=== PATIENT | female | born 1955 | race Two or more races ===

== ENCOUNTER 2024-08-25 11:30 | Inpatient (IN) | payer OTHER ==
[~2024-08-25] VITALS: Ht 162.6 cm; Wt 85.5 kg
[~2024-08-25 11:30] MED LIST: APPLTAB PO; ASPI81CH59 PO; ATOR40TA52 PO; CARV12.544 PO; CYCL-837 PO; DOCU-94 PO; DULO60CA41 PO; HYDR-4072 PO; HYDR12.59 PO; LEVO-849 PO; LOSA-535 PO; PANT40TA2 PO
[2024-08-25] MEDS: KETOROLAC TROMETH 30 MG/ML 1ML VIAL ONE (11:34)
[2024-08-25 12:38] LABS: INR 0.99 (0.9-1.15); Partial Thromboplastin Time 30.2 SEC (24.5-34.5); Prothrombin Time 10.5 sec (9.3-11.8)
[2024-08-25] MEDS ORDERED: LIDOCAINE 2% (LOCAL ANESTH.) PF 5ml SDV ONE (12:58)
[2024-08-25] MEDS ORDERED: ONDANSETRON HCL 4 MG/2 ML VIAL ONE (12:58)
[2024-08-25] MEDS ORDERED: METOCLOPRAMIDE HCL 5MG/ml INJ 2ml VIAL ONE (12:58)
[2024-08-25] MEDS ORDERED: fentaNYL CITRATE 100 MCG/2 ML VL ONE (12:58)
[2024-08-25] MEDS ORDERED: MIDAZOLAM HCL 2MG/2ML 2ml VIAL (1mg/ml) ONE (12:58)
[2024-08-25] MEDS ORDERED: PROPOFOL 10 MG/ML 20 ML IV ONE (12:59)
[2024-08-25] MEDS: CEFEPIME 1GM/ 50ML 50 ML IV ONE (13:00)
[2024-08-25] MEDS: CLINDAMYCIN 600MG IV 50 ML IV ONE (13:05)
[2024-08-25] MEDS ORDERED: ROCURONIUM 10MG/ML 10ML VIAL IV ONE (13:06)
[2024-08-25] MEDS: TRANEXAMIC ACID 20 ML ONE (13:15)
[2024-08-25] MEDS ORDERED: ePHEDrine SULFATE 50 MG/ML AMP ONE (13:18)
[2024-08-25] MEDS ORDERED: HYDROmorphone HCL 2 MG/ML VL/or syr ONE (13:36)
[2024-08-25] MEDS: VANCOMYCIN HCL 1000 MG VL ONE (13:43)
[2024-08-25] MEDS ORDERED: ALBUTEROL SULFATE 90 MCG MDI IN ONE (13:59)
[2024-08-25] MEDS ORDERED: SUGAMMADEX 200mg/2ml Vial (100MG/ML) IV ONE (14:01)
[2024-08-25] MEDS ORDERED: DOCUSATE SOD 100 MG CAP PO SCH (14:30)
--- NOTE | 2024-08-25 14:35 | DVHOP2 ---
Operative Report - 2 Report Details Date: 08/25/24 Preop Diagnosis: Right knee degenerative arthritis Postop Diagnosis: Right knee degenerative arthritis Surgeon: Yolie Gleason MD Burn Out Scarfing Operator: Yazmin QUIJANO Anesthesiologist: Lexa White CRNA Anesthesia: General Drains: Edwar closed wound suction Implant: Franky servin knee size seven femur PS 10 poly six tibia base plate Consent: The patient was informed of the risks and benefits of the procedure. These include but are not limited to complications of anesthesia, postoperative infection, incomplete relief of symptoms, recurrence of symptoms, damage to blood vessels, nerves and tendons, deep venous thrombosis, pulmonary embolism and possible need for repeat surgery in the future. Complications: None Estimated Blood Loss: 50 cc Fluids: See anesthesia record Findings: Valgus deformity, osteophytes, denuded cartilage with eburnated bone Indications for Surgery: Right knee degenerative arthritis with severe pain and functional impairment despite nonoperative management Name of Procedure Performed Right total knee arthroplasty Procedure Details Procedure Details: The patient was brought to the operating room and placed on the table in the supine position after being given spinal anesthetic with adequate analgesia obtained. Surgical timeout was performed verifying patient, laterality and procedure Preop patient received IV cefepime IV Ancef and IV tranexamic acid. Tourniquet was applied to the lower extremity. Extremity was elevated, exsanguinated Esmarch, and tourniquet inflated. Lower extremity was prepped and draped in sterile fashion. Midline incision was made followed by medial arthrotomy. I exposed the anterior medial and lateral tibial plateau and the anterior distal femur. Bovie and aqua mantis were used for hemostasis. I excised the anterior meniscal tissue with Bovie. I excised a portion of the fat pad with Bovie. The patella was everted and the knee flexed. I drilled the distal femur and suctioned the hole to reduce the risk of fat emboli. I inserted intramedullary guide with 5 degree valgus setting. I pinned the distal femoral cutting block anteriorly. Intramedullary vincent was removed. Distal femoral cut was made and the block removed. I brought my attention to the tibia setting up the external cutting jig for the tibia paying attention to slope, rotation and varus valgus alignment. I set the depth and pinned the block. I used the external alignment vincent to aid in checking alignment. Bone cut was made and bone removed releasing soft tissue attachments with Bovie. Cutting block removed. I then checked the extension gap and deemed adequate and removed the femur and tibia pins. I flexed the knee and applied the femoral sizing guide to the femur. I checked the size and external rotation setting at 90 degrees to Whitesides line and checking the epicondylar axis. I drilled the holes then removed the sizing guide and pin. I then tapped on the 4 in 1 cutting block and checked with the dylan wing anteriorly to make sure that I would not notch then pinned the block. Cuts were made and the block and pins were removed. Bone was removed with curved osteotome. I used a rongeur to remove any remaining osteophytes at the femur and tibia. I then used a lamina locomotive supervisor to open up the back alternating between the medial and lateral side. Any remaining meniscal tissue was excised with scalpel. I used curved osteotome, curette and rongeur to remove any posterior osteophytes. I prophylactically coagulated with aqua mantis. I then tapped on the template for the box cut and pinned it. Box cut was made and bone removed. Template and pin removed. I then tapped on the femoral trial. I then brought my attention back to the tibia sizing it. I used the external alignment vincent to make sure that rotation and alignment were good. I made a Bovie kiarra at the tibial tray kiarra identifying rotation for later use. I tried various tibial polytrials. The patella tracked nicely without thumb pressure. I removed the trials. I pinned the tray and used the reamer and keel punch. The implants were brought into the field while bone preparation was started. I used both normal saline irrigation and the CarboJet to prepare the bone. Once cement was ready I applied cement to the tibial implant and tibial bone tapped it on and removed excess cement in usual fashion. In similar fashion I tapped on the femoral implant. I inserted the trial polyethylene and brought the knee into 30 degrees flexion. I irrigated with bactisure irrigant. Once cement cured, I checked stability and range of motion as well as patella tracking. tourniquet was released and hemostasis maintained with aqua mantis. I inserted the polyethylene and again checked stability. I used a 2 grams of vancomycin half of which was placed deep and half superficial. I repaired the extensor mechanism with the knee in flexion with #1 Ethibond interrupted [id number]. Deep subcutaneous tissue was closed with 0 Vicryl. Superficial subcutaneous tissue was closed with 2-0 vicryl interrupted. Skin was closed with chayito. I then applied the [edwar closed wound suction]. Patient tolerated the procedure well and was brought to recovery room in stable condition. Condition Stable Disposition Still a Patient YOLIE GLEASON MD Aug 25, 2024 14:35
[2024-08-25] MEDS: D5W/LACTATED RINGERS 1,000 ML IV SCH (14:45)
[2024-08-25] MEDS ORDERED: ACETAMINOPHEN 325 MG TAB PO PRN (14:45)
[2024-08-25 14:54] VITALS: PULSE 63; RESP 11; O2SAT 100
[2024-08-25] MEDS: METOCLOPRAMIDE HCL 5MG/ml INJ 2ml VIAL IV ONE (15:15)
[2024-08-25] MEDS: KETOROLAC TROMETH 30 MG/ML 1ML VIAL IV ONE (15:15)
[2024-08-25] MEDS: ONDANSETRON HCL 4 MG/2 ML VIAL IV ONE (15:15)
[2024-08-25] MEDS: hydrALAZINE HCL 20 MG/ML VL IV PRN (15:27)
[2024-08-25] MEDS: HYDROmorphone HCL 2 MG/ML VL/or syr IV PRN (15:51)
--- NOTE | 2024-08-25 17:15 | DVH ---
Indication: postop Technique: 3 views right knee Comparison: None FINDINGS/IMPRESSION: Total right knee arthroplasty in anatomic alignment. Expected postoperative changes including surrou nding soft tissue emphysema, edema. Moderate suprapatellar effusion. Old right MCL injury.
[2024-08-25 17:49] VITALS: BP 138/59; PULSE 94; RESP 18; TEMP 98.3; O2SAT 97
[2024-08-25 17:56] VITALS: PULSE 82; RESP 16; O2SAT 97
[2024-08-25] MEDS: KETOROLAC TROMETH 30 MG/ML 1ML VIAL IV SCH (18:23)
[2024-08-25] MEDS: ACETAMINOPHEN 325 MG TAB PO SCH (18:23)
[2024-08-25 20:00] VITALS: PULSE 89; RESP 16
[2024-08-25 21:00] VITALS: BP 148/78; PULSE 99; RESP 18; TEMP 97.9; O2SAT 91
[2024-08-25] MEDS: oxyCODONE HCL 5MG TAB PO PRN (21:19)
[2024-08-25] MEDS: CLINDAMYCIN 600MG IV 50 ML IV SCH (22:00)
[2024-08-25] MEDS ORDERED: PATIENTS OWN MEDICATION (Cyclobenzaprine Hcl 10 MG) PO SCH (22:00)
[2024-08-25] MEDS: CYCLOBENZAPRINE HCL 10 MG TAB PO SCH (22:00)
[2024-08-25] MEDS: PREGABALIN 25 MG CAP PO SCH (22:00)
[2024-08-25] MEDS: CARVEDILOL 12.5 MG TAB PO SCH (22:00)
[2024-08-26 01:00] VITALS: BP 168/90; PULSE 100; RESP 18; TEMP 98.3; O2SAT 92
[2024-08-26 05:00] VITALS: BP 172/90; PULSE 95; RESP 18; TEMP 98.3; O2SAT 92
[2024-08-26 06:22] LABS: Chloride 105 mmol/L (98-107); Sodium 139 mmol/L (136-145)
[2024-08-26 06:23] LABS: Anion Gap 8 (5-15); Carbon Dioxide 26 mmol/L (20-31)
[2024-08-26] MEDS: LEVOTHYROXINE SODIUM 100 MCG TAB PO SCH (06:23)
[2024-08-26 06:26] LABS: Calcium 10.9 mg/dL (8.7-10.4)
[2024-08-26 06:28] LABS: BUN/Creatinine Ratio 16.5 (10.0-20.0); Basophils # (auto) 0 10 ^3/uL (0-0.2); Basophils % (auto) 0.3 % (0.0-2.0); Blood Urea Nitrogen 15 mg/dL (9-23); Eosinophils # (auto) 0 10 ^3/uL (0-0.8); Hemoglobin 11.1 g/dL (12.2-16.2); Lymphocytes # (auto) 0.9 10 ^3/uL (0.4-5.4); Lymphocytes % (auto) 7.5 % (10.0-50.0); Mean Corpuscular Hemoglobin 29.2 pg (28.0-32.0); Mean Corpuscular Hgb Conc. 32.7 g/dL (32.0-36.0); Mean Corpuscular Volume 89.2 fL (80.0-100.0); Monocytes % (auto) 8.1 % (0.0-12.0); Neutrophils # (auto) 9.9 10 ^3/uL (1.6-8.6); Neutrophils % (auto) 84.1 % (37.0-80.0); Platelet Count (auto) 269 10^3/uL (140-450); Red Blood Cells 3.81 10^6/uL (4.0-5.20); Red Cell Distribution Width 15.2 % (11.8-14.3); White Blood Cell 11.8 10^3/uL (4.4-10.8)
[2024-08-26 06:29] LABS: Glucose 129 mg/dL (74-106)
[2024-08-26 08:00] VITALS: PULSE 72; RESP 18; O2SAT 93
[2024-08-26] MEDS: ASPirin 81 mg TAB PO SCH (08:46)
[2024-08-26] MEDS: LOSARTAN POTASSIUM 50 MG TAB PO SCH (08:49)
[2024-08-26] MEDS: DULoxetine HCL 30 MG CAP PO SCH (08:49)
[2024-08-26] MEDS: PANTOPRAZOLE 40 MG TAB PO SCH (08:50)
[2024-08-26 09:00] VITALS: BP 191/83; PULSE 85; RESP 20; TEMP 99; O2SAT 92
[2024-08-26] MEDS ORDERED: PATIENTS OWN MEDICATION (Losartan Potassium 100 MG) PO SCH (10:00)
[2024-08-26] MEDS ORDERED: LEVOTHYROXINE SODIUM 100 MCG TAB PO SCH (10:00)
[2024-08-26] MEDS ORDERED: PATIENTS OWN MEDICATION (Duloxetine Hcl (Cymbalta) 60 MG) PO SCH (10:00)
[2024-08-26 13:00] VITALS: BP 184/96; PULSE 85; RESP 20; TEMP 98.2; O2SAT 94
--- NOTE | 2024-08-26 13:33 | DVHDS2 ---
Discharge Summary Date of Admission Aug 25, 2024 at 14:31 Date of Discharge: Aug 26, 2024 Labs/Diagnostic Data: Laboratory Results Test 08/26/24 05:33 08/25/24 12:00 White Blood Count 11.8 10^3/uL (4.4-10.8) Red Blood Count 3.81 10^6/uL (4.0-5.20) Hemoglobin 11.1 g/dL (12.2-16.2) Hematocrit 34.0 % (36.0-46.0) Mean Corpuscular Volume 89.2 fL (80.0-100.0) Mean Corpuscular Hemoglobin 29.2 pg (28.0-32.0) Mean Corpuscular Hemoglobin Concent 32.7 g/dL (32.0-36.0) Red Cell Distribution Width 15.2 % (11.8-14.3) Platelet Count 269 10^3/uL (140-450) Mean Platelet Volume 8.6 fL (6.9-10.8) Neutrophils (%) (Auto) 84.1 % (37.0-80.0) Lymphocytes (%) (Auto) 7.5 % (10.0-50.0) Monocytes (%) (Auto) 8.1 % (0.0-12.0) Eosinophils (%) (Auto) 0.0 % (0.0-7.0) Basophils (%) (Auto) 0.3 % (0.0-2.0) Neutrophils # (Auto) 9.9 10 ^3/uL (1.6-8.6) Lymphocytes # (Auto) 0.9 10 ^3/uL (0.4-5.4) Monocytes # (Auto) 1.0 10 ^3/uL (0-1.3) Eosinophils # (Auto) 0 10 ^3/uL (0-0.8) Basophils # (Auto) 0 10 ^3/uL (0-0.2) Nucleated Red Blood Cells 0.0 % Sodium Level 139 mmol/L (136-145) Potassium Level 4.0 mmol/L (3.5-5.1) Chloride Level 105 mmol/L (98-107) Carbon Dioxide Level 26 mmol/L (20-31) Anion Gap 8 (5-15) Blood Urea Nitrogen 15 mg/dL (9-23) Creatinine 0.91 mg/dL (0.550-1.02) Glomerular Filtration Rate Calc 69 mL/min (>90) BUN/Creatinine Ratio 16.5 (10.0-20.0) Serum Glucose 129 mg/dL (74-106) Calcium Level 10.9 mg/dL (8.7-10.4) Prothrombin Time 10.5 sec (9.3-11.8) Prothrombin Time INR 0.99 (0.9-1.15) Activated Partial Thromboplast Time 30.2 SEC (24.5-34.5) Other Laboratory Tests 08/26/24 05:33 Brief Hx & Hospital Course: Patient was brought to the hospital yesterday to undergo a right total knee arthroplasty. She tolerated the procedure well without complications and was kept overnight for postoperative observation. Patient has remained medically stable denying any overnight events and reports some postoperative knee pain that is being well managed with the help of pain medication. Patient reports that she was able to get up and walk with the help of physical therapy and her walker and was able to go down the todd and around the nurses station and back to her room with minimal pain. Patient denied any other complaints or concerns during my evaluation and is ready to go home. Condition at Discharge: Stable Final Diagnosis/Problems List Right knee degenerative arthritis Discharge Disposition: Home (Patient to be considered for home health as patient is going home for further assistance with the acute phase of her recovery) Discharge Instruct/Medications Diet: Regular Activity: See Comment Activity comment: Patient to remain weight-bearing as tolerated with the assistance of a walker Follow Up/Referral: I instructed the patient to follow up with our office in 10-14 days for her 1st postoperative evaluation Medications: Rx sent via our outpatient EMR system Discharge Statement: "Patient was advised to return to the ER or call 911 if any headaches, dizziness, shortness of breath, chest pain, abdominal pain, bleeding, fevers, or worsening of medical condition. Patient was counseled about treatment plan, medications, possible side effects, patientverbalized understanding. All questions were answered to the best of my ability. This discharge took greater then 30 minutes in planning, reviewing documentation, counseling the patient, and discussing with other team members." ASSESSMENT ASSESSMENT Assessment Right knee degenerative arthritis VIKKI PEACOCK Aug 26, 2024 13:33
--- NOTE | 2024-08-26 13:35 | DVHPN2 ---
Progress Note - Dictate Date Seen: Aug 26, 2024 Medical Necessity Reason Pt with a Central, PICC or Fol: No Subjective Patient was lying comfortably in bed during my evaluation and reports some postoperative knee pain that is being well managed with the help of pain medication. Patient reports that she was able to get up and walk with the help of physical therapy and her walker and was able to get down the todd around the nurses station and back to her bed with minimal pain. Patient is otherwise feeling well and is ready to go home. vital signs Vital Sign Date Time Temp Pulse Resp B/P (MAP) Pulse Ox O2 Delivery O2 Flow Rate FiO2 08/26/24 10:00 87 157/89 08/26/24 09:00 99.0 20 92 99.0 08/26/24 08:00 Room Air* 0 21 Total Intake and Output 08/25/24 08/25/24 08/26/24 15:00 23:00 07:00 Intake Total 220 ml 450 ml Balance 220 ml 450 ml medications Current Medications Medications Dose Ordered Sig/Brea Route Start Time Stop Time Status Last Admin Dose Admin Carvedilol 12.5 mg BID PO 08/25/24 22:00 08/26/24 08:48 12.5 MG Docusate Sodium 100 mg PRN PO 08/25/24 14:30 Pantoprazole Sodium 40 mg DAILY PO 08/26/24 10:00 08/26/24 08:50 40 MG Patient Own Medication 10 mg BID PO 08/25/24 22:00 UNV Patient Own Medication 60 mg DAILY PO 08/26/24 10:00 UNV Patient Own Medication 100 mg DAILY PO 08/26/24 10:00 UNV Levothyroxine Sodium 88 mcg QAM PO 08/26/24 07:00 08/26/24 06:23 88 MCG Losartan Potassium 100 mg DAILY PO 08/26/24 10:00 08/26/24 08:49 100 MG Duloxetine HCl 60 mg DAILY PO 08/26/24 10:00 08/26/24 08:49 60 MG Cyclobenzaprine HCl 10 mg BID PO 08/25/24 22:00 08/26/24 09:03 10 MG Dextrose/Lactated Ringer's 1,000 ml @ 100 mls/hr Q10H IV 08/25/24 14:45 08/26/24 04:10 100 MLS/HR Acetaminophen 650 mg Q4HP PRN PO 08/25/24 14:45 Acetaminophen 650 mg Q6HR PO 08/25/24 18:00 08/26/24 12:35 650 MG Ketorolac Tromethamine 15 mg Q6HR IV 08/25/24 18:00 08/30/24 17:59 08/26/24 12:35 15 MG Pregabalin 50 mg BID PO 08/25/24 22:00 08/26/24 13:28 50 MG Oxycodone HCl 5 mg Q4HP PRN PO 08/25/24 14:45 08/26/24 08:45 5 MG Oxycodone HCl 10 mg Q4HP PRN PO 08/25/24 14:45 Aspirin 81 mg BID PO 08/26/24 10:00 08/26/24 08:46 81 MG objective A&O x4 in no acute distress Knee range of motion grossly limited with pain on movement Yemi dressing clean, dry, intact, and maintaining suction No distal edema or calf tenderness to palpation Neurovascularly intact with cap refill less than 2 seconds laboratory and microbiology Laboratory Tests 08/26/24 05:33 Test 08/26/24 05:33 Range/Units Serum Glucose 129 H 74-106 mg/dL Assessment/Plan Patient to be discharged home and advised to remain weight-bearing as tolerated with the assistance of a walker and to follow up with our office in 10-14 days for her 1st postoperative evaluation. I also advised the patient to maintain her dressings clean, dry, intact, and maintaining suction and to call our office if she has any questions or concerns. Rx sent via our outpatient EMR system. She understood and agreed. Plan discussed with: Patient VIKKI PEACOCK Aug 26, 2024 13:35
[2024-08-26] MEDS: oxyCODONE HCL 5MG TAB PO PRN (14:30)
[2024-08-26 14:52] VITALS: BP 157/89; PULSE 87; TEMP 36.8
== END 2024-08-26 15:00 | disposition home or self-care (01) | DRG 470 ==
LOC: SUR 11:30 → OVERFLOW 14:31 → WEST WING 17:16
PROVIDERS: ADMIT Orthopaedic Surgery; ATTEND Orthopaedic Surgery
PROC: 0SRC0J9 Replacement of Right Knee Joint with Synthetic Substitute, Cemented, Open Approach (ICD-10-PCS; principal; 2024-08-25 12:58)
DX: M17.11 Unilateral primary osteoarthritis, right knee (principal); M21.061 Valgus deformity, not elsewhere classified, right knee; M25.761 Osteophyte, right knee; Z79.899 Other long term (current) drug therapy
CPT/HCPCS: 36415; 73562; 80048; 85025; 85610; 85730; 86850; 86900; 86901; 97163; G0378; J1885; J2003; J2250; J2405; J2704; J3490

== ENCOUNTER 2024-09-19 17:16 | Inpatient (IN) | payer OTHER ==
[~2024-09-19] VITALS: Ht 162.6 cm; Wt 86.0 kg
--- NOTE | 2024-09-19 17:43 | ED.PDOC ---
History of Present Illness HPI Comments 69-year-old female presents with a chief complaint of fever, edema, and pain x 3 days throughout the anterior aspect of the right knee. Patient recently had knee replacement surgery on 08/25/2024 on the right knee. Patient states that know she is experiencing green drainage from her surgical site. Patients knee is swollen and visibly so compared to left knee. Patient reports mild pain to the area. No other symptoms or modifying factors present at this time. Patient was hypertensive at arrival. Patient does utilize Coreg and stated she did not take her nightly dosing. Chief Complaint: Wound Check Time Seen by MD: 17:35 Reviewed Notes: Nurses Notes, Medications, Allergies Allergies: Coded Allergies: Penicillins (Unverified Allergy, Unknown, convulsions , 08/24/24) Home Meds Reported Medications Apple Cider Vinegar (Apple Cider Vinegar) 500 Mg Tab, 500 MG PO DAILY, TAB 08/24/24 Docusate Sodium (Colace) 100 Mg Cap, 100 MG PO PRN, CAP 08/24/24 Hydrocodone-Acetaminophen (Hydrocodone/Acetaminophen 10-325 mg) 1 Tab Tab, 1 TAB PO PRN, TAB 08/24/24 Aspirin (Aspirin Low Dose) 81 Mg Chw, 81 MG PO DAILY, TAB.CHEW 08/24/24 Cyclobenzaprine Hcl (Cyclobenzaprine Hcl) 5 Mg Tab, 10 MG PO BID, TAB 08/24/24 Duloxetine Hcl (Cymbalta) 60 Mg Cap, 60 MG PO DAILY, CAP 08/24/24 Losartan Potassium (Losartan Potassium) 100 Mg Tab, 100 MG PO DAILY, TAB 08/24/24 Atorvastatin Calcium (ATORVASTATIN CALCIUM) 40 Mg Tab, 40 MG PO DAILY, TAB 08/24/24 Pantoprazole Sodium Sesquihydr (Protonix) 40 Mg Tab, 40 MG PO DAILY, #30 TAB 08/24/24 Levothyroxine Sodium (SYNTHROID TABLET) 100 Mcg Tb, 88 MCG PO DAILY, TAB 08/24/24 Hydrochlorothiazide (Hydrochlorothiazide) 12.5 Mg Cap, 12.5 MG PO DAILY, CAP 08/24/24 Carvedilol (Carvedilol) 12.5 Mg Tab, 12.5 MG PO BID, TAB 08/24/24 Information Source: Patient Mode of Arrival: Ambulatory Severity: Moderate Timing: Days Duration: Since onset Prehospital treatment: None Past Medical History PAST MEDICAL HISTORY: HTN, Denies Surgical History: Denies all surgeries Surgical History (Other): Right total knee replacement surgery on August 25, 2024. LACE STRIPPER History: Denies all LACE STRIPPER Hx, No Pertinent LACE STRIPPER History Family History Family History: Reviewed,noncontributory to illness, No family hx of Cancer, No family hx of DM, No family hx of Heart evelina, No family hx of HTN, No family hx ofKidney evelina, No family hx of Liver evelina, No family hx of Lung evelina, No family hx of Stroke Social History Smoker: Non-Smoker Alcohol: Denies ETOH Use Drugs: Denies Drug Use Lives In: Home Constitutional: reports: fever; denies: chills, diaphoresis, fatigue, malaise, sweats, weakness, others EENTM: denies: blurred vision, double vision, ear bleeding, ear discharge, ear drainage, ear pain, ear ringing, eye pain, eye redness, hearing loss, mouth pain, mouth swelling, nasal discharge, nose bleeding, nose congestion, nose pain, photophobia, tearing, throat pain, throat swelling, voice changes, others Respiratory: denies: cough, hemoptysis, orthopnea, SOB at rest, shortness of breath, SOB with excertion, stridor, wheezing, others Cardiovascular: reports: edema; denies: chest pain, dizzy spells, diaphoresis, Dyspnea on exertion, irregular heart beat, left arm pain, lightheadedness, palpitations, PND, syncope, others Gastrointestinal: denies: abdomen distended, abdominal pain, blood streaked bowels, constipated, diarrhea, dysphagia, difficulty swallowing, hematemesis, melena, nausea, poor appetite, poor fluid intake, rectal bleeding, rectal pain, vomiting, others Genitourinary: denies: abnormal vagina bleeding, burning, dyspareunia, dysuria, flank pain, frequency, hematuria, incontinence, pain, , vagina discharge, urgency, others Neurological: denies: dizziness, fainting, headache, left sided numbness, left sided weakness, numbness, paresthesia, pre-existing deficit, right sided numbness, right sided weakness, seizure, speech problems, tingling, tremors, weakness, others Musculoskeletal: reports: others (Diffuse anterior right knee pain with swe lling and discharge); denies: back pain, gout, joint pain, joint swelling, muscle pain, muscle stiffness, neck pain Integumetry: denies: bruises, change in color, change in hair/nails, dryness, laceration, lesions, lumps, rash, wounds, others Allergic/Immunocompromised: denies: Difficulty Healing, Frequent Infections, Hives, Itching, others Hematologic/Lymphatic: denies: anemia, blood clots, easy bleeding, easy bruising, swollen glands, others Endocrine: denies: excessive hunger, excessive sweating, excessive thirst, excessive urination, flushing, intolerance to cold, intolerance to heat, unexplained weight gain, unexplained weight loss, others Psychiatric: denies: anxiety, bipolar disorder, depression, hopeless, panic disorder, schizophrenia, sleepless, suicidal, others All Other Systems: Reviewed and Negative Physical Exam General Appearance: Moderate Distress ([id number] distress due to right knee concerns.), Obese HEENT: Normal ENT Inspection, Pharynx Normal, TMs Normal Neck: Full Range of Motion, Non-Tender, Normal, Normal Inspection Respiratory: Chest Non-Tender, Lungs Clear, No Accessory Muscle Use, No Respiratory Distress, Normal Breath Sounds Cardiovascular: No Edema, No JVD, No Murmur, No Gallop, Normal Peripheral Pulses, Regular Rate/Rhythm Breast Exam: Deferred Gastrointestinal: No Organomegaly, Non Tender, No Pulsatile Mass, Normal Bowel Sounds, Soft Genitalia: Deferred Pelvic: Deferred Rectal: Deferred Extremities: Other (Patient displays an extensive anterior vertical scar due to her total right knee replacement. Patient has Steri-Strips in place. Patient reveals some erythema and edema. When patient compresses the area, some mild green discharge is noted. Significant reduced range of motion. Distal neurovascularly intact.) Musculoskeletal : Apperance: Normal Neurologic: Alert, No Motor Deficits, Normal Affect, Normal Mood, No Sensory Deficits Cerebellar Function: Normal Reflexes: Normal Skin: Dry, Normal Color, Warm Lymphatic: No Adenopathy Was a procedure done? Was a procedure done?: No Differential Dx Considerations may include: Sepsis, septic joint, postoperative complication, electrolyte abnormality X-Ray, Labs, Meds, VS Vital Signs Date Time Temp Pulse Resp B/P (MAP) Pulse Ox O2 Delivery O2 Flow Rate FiO2 09/19/24 21:24 206/89 09/19/24 20:49 97.9 75 18 161/103 (122) 96 97.9 09/19/24 20:49 75 18 96 Room Air 09/19/24 17:37 98.5 95 16 160/105 (123) 97 98.5 Lab Test 09/19/24 17:52 Range/Units White Blood Count 7.6 4.4-10.8 10^3/uL Red Blood Count 3.97 L 4.0-5.20 10^6/uL Hemoglobin 12.0 L 12.2-16.2 g/dL Hematocrit 35.9 L 36.0-46.0 % Mean Corpuscular Volume 90.5 80.0-100.0 fL Mean Corpuscular Hemoglobin 30.2 28.0-32.0 pg Mean Corpuscular Hemoglobin Concent 33.3 32.0-36.0 g/dL Red Cell Distribution Width 16.1 H 11.8-14.3 % Platelet Count 399 140-450 10^3/uL Mean Platelet Volume 8.1 6.9-10.8 fL Neutrophils (%) (Auto) 61.8 37.0-80.0 % Lymphocytes (%) (Auto) 26.8 10.0-50.0 % Monocytes (%) (Auto) 8.4 0.0-12.0 % Eosinophils (%) (Auto) 2.5 0.0-7.0 % Basophils (%) (Auto) 0.5 0.0-2.0 % Neutrophils # (Auto) 4.7 1.6-8.6 10 ^3/uL Lymphocytes # (Auto) 2.0 0.4-5.4 10 ^3/uL Monocytes # (Auto) 0.6 0-1.3 10 ^3/uL Eosinophils # (Auto) 0.2 0-0.8 10 ^3/uL Basophils # (Auto) 0 0-0.2 10 ^3/uL Nucleated Red Blood Cells 0.0 % Sodium Level 140 136-145 mmol/L Potassium Level 3.2 L 3.5-5.1 mmol/L Chloride Level 102 98-107 mmol/L Carbon Dioxide Level 29 20-31 mmol/L Anion Gap 9 5-15 Blood Urea Nitrogen 13 9-23 mg/dL Creatinine 0.88 0.550-1.02 mg/dL Glomerular Filtration Rate Calc 72 >90 mL/min BUN/Creatinine Ratio 14.8 10.0-20.0 Serum Glucose 94 74-106 mg/dL Calcium Level 11.7 H 8.7-10.4 mg/dL Total Bilirubin 0.2 0.2-1.0 mg/dL Aspartate Amino Transferase (AST) 43 H 13-40 U/L Alanine Aminotransferase (ALT) 33 7-40 U/L Alkaline Phosphatase 164 H 46-116 U/L Total Protein 7.3 5.7-8.2 g/dL Albumin 4.3 3.2-4.8 g/dL Current Medications Medications (Trade) Dose Ordered Sig/Brea Route Start Time Stop Time Status Last Admin Oxycodone/ Acetaminophen (Percocet 5/ 325MG Tablet) 1 tab ONCE ONCE PO 09/19/24 17:45 09/19/24 17:46 DC 09/19/24 17:58 Carvedilol (Coreg Tablet) 12.5 mg ONCE ONCE PO 09/19/24 21:00 09/19/24 21:01 DC 09/19/24 21:24 X-Ray, Labs, Meds, VS Comment All studies performed the ED were evaluated by me personally. While serum laboratories were unremarkable for any definitive sepsis concerns, CT of the right lower extremity with contrast revealed a small to moderate joint effusion with minimal soft tissue edema as well as possible peripheral enhancement along the effusion. Contrast-enhanced MRI or nuclear medicine WBC scan for better evaluation of possible infectious etiology is recommended. Patient will be adm itted for that recommended study. Knee replacement was performed by Dr. Cheung. Time of 1ST Reevaluation: 21:53 Reevaluation 1ST: Unchanged Consultation: PCP, Other (Orthopedist) Patient Education/Counseling: Diagnosis, Treatment, Need For Follow Up Family Education/Counseling: Diagnosis, Treatment, No Family Present SEPSIS Sepsis Screen Recent Procedure: No On Antibiotic Therapy: No Respiratory Rate >20: No Heart Rate >90: No Temp<36 C (96.8 F) or >38.3 C: No SBP <90 or MAP <65 mmHG: No New Acute Mental Status Change: No Is the patient on CPAP, BIPAP,: No Physician Orders Rt Lower Extremity W Con (09/19/24 17:39) Saline Lock (09/19/24 17:47) Vital Signs Date Time Temp Pulse Resp B/P (MAP) Pulse Ox O2 Delivery O2 Flow Rate FiO2 09/19/24 21:24 206/89 09/19/24 20:49 97.9 75 18 161/103 (122) 96 97.9 09/19/24 20:49 75 18 96 Room Air 09/19/24 17:37 98.5 95 16 160/105 (123) 97 98.5 Laboratory Tests Test 09/19/24 17:52 White Blood Count 7.6 10^3/uL (4.4-10.8) Medications Medications Dose Ordered Sig/Brea Route Start Time Stop Time Status Last Admin Dose Admin Carvedilol 12.5 mg ONCE ONCE PO 09/19/24 21:00 09/19/24 21:01 DC 09/19/24 21:24 Oxycodone/ Acetaminophen 1 tab ONCE ONCE PO 09/19/24 17:45 09/19/24 17:46 DC 09/19/24 17:58 Departure 1 Departure Time of Disposition: 21:53 Impression: Primary Impression: Postoperative complication Disposition: ADMITTED INPATIENT Condition: Stable Discharged With: Self, Spouse Critical Care Note Critical Care Time?: No Stability Stability form required: No Heart Score Heart Score: Heart Score Response (Comments) Value History N/A 0 EKG N/A 0 Age N/A 0 Risk Factors N/A 0 Troponin N/A 0 Total 0 I personally scribed for KENDRA ARROYO PAC ([email or web address]) on 09/19/24 at 17:43. Electronically submitted by Juan Carlos Staples ([email or web address]). KENDRA ARROYO PAC Sep 19, 2024 17:43
[2024-09-19] MEDS: OXYCODONE W/ ACETAMINOPHEN 5/325MG TABLET PO ONE (17:58)
[2024-09-19 18:35] LABS: Hematocrit 35.9 % (36.0-46.0); Hemoglobin 12.0 g/dL (12.2-16.2); Mean Corpuscular Hemoglobin 30.2 pg (28.0-32.0); Mean Corpuscular Volume 90.5 fL (80.0-100.0); Nucleated Red Blood Cells % 0.0 %
[2024-09-19 18:49] LABS: Alanine Aminotransferase 33 U/L (7-40); Albumin 4.3 g/dL (3.2-4.8); Anion Gap 9 (5-15); BUN/Creatinine Ratio 14.8 (10.0-20.0); Blood Urea Nitrogen 13 mg/dL (9-23); Carbon Dioxide 29 mmol/L (20-31); Chloride 102 mmol/L (98-107); Glucose 94 mg/dL (74-106); Sodium 140 mmol/L (136-145); Total Protein 7.3 g/dL (5.7-8.2)
[2024-09-19 18:55] LABS: Alkaline Phosphatase 164 U/L (46-116); Bilirubin, Total 0.2 mg/dL (0.2-1.0); Calcium 11.7 mg/dL (8.7-10.4); Potassium 3.2 mmol/L (3.5-5.1)
[2024-09-19] MEDS: IOHEXOL 300 MG/ML 100ML BOTTLE IJ ONE (20:19)
--- NOTE | 2024-09-19 21:01 | DVH ---
EXAM: CT RT LOWER EXTREMITY W CON INDICATION: Possible septic joint postop EXAM DATE: 09/19/2024 08:12 PM COMPARISON: None TECHNIQUE: Multiple axial CT images of the right knee were obtained using bone algorithm. Axial and c oronal reformatting was done. Bone and soft tissue windows were reviewed. Radiation Dose Information: CT Dose: CTDI volume is 8.09 mGy. Dose-length product is 288.17 mGy*cm Findings/Impression: There is no evidence of an acute fracture, dislocation, blastic, or lytic lesions. Right total knee arthroplasty appears intact without evidence of loosening. Associated beam hardening artifact limits evaluation. Small to moderate joint effusion with minimal soft tissue edema. Possible peripheral enhancement hannah g the effusion, but evaluation is limited. Recommend contrast-enhanced MRI or nuclear medicine WBC scan for better evaluation of possible infect ious etiology.
[2024-09-19] MEDS: CARVEDILOL 12.5 MG TAB PO ONE (21:24)
[2024-09-19] MEDS: HYDROmorphone HCL 2 MG/ML VL/or syr IV ONE (23:55)
[2024-09-20] VITALS (11 sets, daily range): BP systolic 116–174; BP diastolic 58–96; PULSE 71–108; RESP 18–19; TEMP 97.6–98.1; O2SAT 93–98
[2024-09-20] MEDS ORDERED: ONDANSETRON HCL 4 MG/2 ML VIAL IV PRN (00:15)
[2024-09-20] MEDS ORDERED: HYDROcodone-ACET 5/325MG TAB PO PRN (00:15)
[2024-09-20] MEDS ORDERED: DOCUSATE SOD 100 MG CAP PO PRN (00:15)
[2024-09-20] MEDS: hydrALAZINE HCL 20 MG/ML VL IV PRN (00:44)
--- NOTE | 2024-09-20 00:49 | DVHHP2 ---
History of Present Illness Reason for Visit: Postoperative complication History of Present Illness The patient is a 69-year-old female with past medical history of thyroid disease, hypertension, and depression who presented to [facility] ED for evaluation of right knee pain status post total knee replacement. Patient reports she has been experiencing fever, right knee edema, redness, and green drainage from the surgical site. Patient was seen and evaluated in the ED, laboratory data shows WBC 7.6, platelets 399, sodium 140, potassium 3.2, BUN 13, creatinine 0.88, GFR 72, glucose 94, calcium 11.7, AST 43, ALT 33, blood pressure 189/99 trending down to 168/73, heart rate 70, temperature 97.8 F, O2 saturation 98% on room air. Right knee CT revealing right total knee arthroplasty appears intact without evidence of loosening, small to moderate joint effusion with minimal soft tissue edema no evidence of an acute fracture, dislocation, blastic, lytic lesions. Patient was given Dilaudid 0.5 mg IV x1, please see medication orders section in the computer. On my assessment, patient denied chest pain, no headache, no dizziness, no diaphoresis, no shortness of breath, no nausea, no vomiting, no fever, no chills. Patient was admitted for further evaluation and medical management. Past Medical History Depression, Thyroid disease, HTN, Past Surgical History Right total knee replacement surgery on August 25, 2024. Family History Reviewed, noncontributory to the management of this case. Past Social History The patient lives at home, denies smoking, alcohol or illicit drugs abuse. Review of Systems Constitutional: Yes: Fever; No: Chills, Sweats, Weakness, Malaise, Other Eyes: No: Pain, Vision change, Conjunctivae inflammation, Eyelid inflammation, Other, Redness ENT: No: Ear pain, Ear discharge, Nose pain, Nose discharge, Nose congestion, Mouth pain, Mouth swelling, Throat pain, Throat swelling, Other Respiratory: No: Cough, Dry, Shortness of breath, SOB with excertion, Wheezing, Hemoptysis, Pleuritic Pain, Sputum, Wheezing, Other Cardiovascular: No: Chest Pain, Palpitations, Orthopnea, Paroxysmal Noc. Dyspnea, Edema, Lt Headedness, Other Gastrointestinal: No: Nausea, Vomiting, Abdominal Pain, Diarrhea, Constipation, Melena, Hematochezia, Other Genitourinary: No Dysuria, No Frequency, No Incontinence, No Hematuria, No Retention, No Other Musculoskeletal: other (Diffuse anterior right knee pain with swelling and discharge.); No: neck pain, shoulder pain, arm pain, back pain, hand pain, leg pain, foot pain Skin: Other (Right knee redness); No: Rash, Lesions, Jaundice, Bruising Neurological: No: Weakness, Numbness, Incoordination, Change in speech, Confusion, Seizures, Other Allergies: Coded Allergies: Penicillins (Unverified Allergy, Unknown, convulsions , 08/24/24) Medications Current Medications Medications Dose Ordered Sig/Brea Route Start Time Stop Time Status Last Admin Dose Admin Aspirin 81 mg DAILY PO 09/20/24 10:00 Clonidine HCl 0.1 mg Q4HP PRN PO 09/20/24 00:15 Atorvastatin Calcium 20 mg HS PO 09/20/24 22:00 Carvedilol 12.5 mg Q12HR PO 09/20/24 10:00 Losartan Potassium 75 mg DAILY PO 09/20/24 10:00 Levothyroxine Sodium 100 mcg QAM@0600 PO 09/20/24 06:00 Hydralazine HCl 10 mg Q6HP PRN IV 09/20/24 00:15 09/20/24 00:44 10 MG Duloxetine HCl 60 mg DAILY PO 09/20/24 10:00 Sodium Chloride 10 ml Q8HR IV 09/20/24 06:00 Acetaminophen/ Hydrocodone Bitart 1 tab Q4HP PRN PO 09/20/24 00:15 Ondansetron HCl 4 mg Q4HP PRN IV 09/20/24 00:15 Docusate Sodium 100 mg BIDPRN PRN PO 09/20/24 00:15 Acetaminophen 650 mg Q6HP PRN PO 09/20/24 00:15 Morphine Sulfate 2 mg Q4HPRN PRN IV 09/20/24 00:15 Exam Vital Signs Vital Signs Date Time Temp Pulse Resp B/P (MAP) Pulse Ox O2 Delivery O2 Flow Rate FiO2 09/20/24 00:44 188/85 09/20/24 00:25 71 15 09/19/24 23:30 97.8 98 97.8 09/19/24 23:30 Room Air* 0 21 General Appearance: Alert, Oriented X3, Cooperative, No acute distress HEENT: Atraumatic, PERRLA, EOMI, Mucous membr. moist/pink Respiratory: Clear to auscultation, Normal air movement Cardiovascular: Regular rate, Normal S1, Normal S2, No murmurs Abdominal: Normal bowel sounds, Soft, No tenderness, No hepatospenomegaly, No masses Extremities: No clubbing, No cyanosis, No edema, Normal pulses, Other (Right knee tenderness/swelling) Skin: No rashes, No breakdown, No significant lesion Neuro: Normal gait, Normal speech, Strength at 5/5 X4 ext, Normal tone, Sensation intact, Cranial nerves 3-12 NL, Reflexes 2+ Psych/Mental Status: Mental status NL, Mood NL Labs/Xrays Labs Test 09/19/24 17:52 Range/Units White Blood Count 7.6 4.4-10.8 10^3/uL Red Blood Count 3.97 L 4.0-5.20 10^6/uL Hemoglobin 12.0 L 12.2-16.2 g/dL Hematocrit 35.9 L 36.0-46.0 % Mean Corpuscular Volume 90.5 80.0-100.0 fL Mean Corpuscular Hemoglobin 30.2 28.0-32.0 pg Mean Corpuscular Hemoglobin Concent 33.3 32.0-36.0 g/dL Red Cell Distribution Width 16.1 H 11.8-14.3 % Platelet Count 399 140-450 10^3/uL Mean Platelet Volume 8.1 6.9-10.8 fL Neutrophils (%) (Auto) 61.8 37.0-80.0 % Lymphocytes (%) (Auto) 26.8 10.0-50.0 % Monocytes (%) (Auto) 8.4 0.0-12.0 % Eosinophils (%) (Auto) 2.5 0.0-7.0 % Basophils (%) (Auto) 0.5 0.0-2.0 % Neutrophils # (Auto) 4.7 1.6-8.6 10 ^3/uL Lymphocytes # (Auto) 2.0 0.4-5.4 10 ^3/uL Monocytes # (Auto) 0.6 0-1.3 10 ^3/uL Eosinophils # (Auto) 0.2 0-0.8 10 ^3/uL Basophils # (Auto) 0 0-0.2 10 ^3/uL Nucleated Red Blood Cells 0.0 % Sodium Level 140 136-145 mmol/L Potassium Level 3.2 L 3.5-5.1 mmol/L Chloride Level 102 98-107 mmol/L Carbon Dioxide Level 29 20-31 mmol/L Anion Gap 9 5-15 Blood Urea Nitrogen 13 9-23 mg/dL Creatinine 0.88 0.550-1.02 mg/dL Glomerular Filtration Rate Calc 72 >90 mL/min BUN/Creatinine Ratio 14.8 10.0-20.0 Serum Glucose 94 74-106 mg/dL Calcium Level 11.7 H 8.7-10.4 mg/dL Total Bilirubin 0.2 0.2-1.0 mg/dL Aspartate Amino Transferase (AST) 43 H 13-40 U/L Alanine Aminotransferase (ALT) 33 7-40 U/L Alkaline Phosphatase 164 H 46-116 U/L Total Protein 7.3 5.7-8.2 g/dL Albumin 4.3 3.2-4.8 g/dL PATIENT: LIZZIE STRATTON ACCT: [id number] UNIT: [id number] : 1955 LOC: ER ROOM / BED: / AGE / SEX: 69 / F ADM STATUS: REG ER SERVICE [id number] ORDERING PHYSICIAN: KENDRA ARROYO PAC PROCEDURE(s): RTLEXW - RT LOWER EXTREMITY W CON REASON: Possible septic joint postop ORDER NUMBER(s): [id number], ACCESSION NUMBER(s): [id number] EXAM: CT RT LOWER EXTREMITY W CON INDICATION: Possible septic joint postop EXAM DATE: 09/19/2024 08:12 PM COMPARISON: None TECHNIQUE: Multiple axial CT images of the right knee were obtained using bone algorithm. Axial and coronal reformatting was done. Bone and soft tissue windows were reviewed. Radiation Dose Information: CT Dose: CTDI volume is 8.09 mGy. Dose-length product is 288.17 mGy*cm Findings/Impression: There is no evidence of an acute fracture, dislocation, blastic, or lytic lesions. Right total knee arthroplasty appears intact without evidence of loosening. Associated beam hardening artifact limits evaluation. Small to moderate joint effusion with minimal soft tissue edema. Possible peripheral enhancement along the effusion, but evaluation is limited. Recommend contrast-enhanced MRI or nuclear medicine WBC scan for better evaluation of possible infectious etiology. Assessment/Plan Assessment/Plan Postoperative complication Hypercalcemia Hypokalemia Fever, unspecified Hypertensive urgency Plan 1. Admit to telemetry unit 2. Breathing treatment 3. Pain control management 4. IV antibiotic management 5. Management of fluids and electrolytes 6. Consultation for hospitalist 7. Diagnostic test right knee CT 8. DVT prophylaxis-on Lovenox 9. Repeat labs CBC, CMP in a.m. 10. Home medication reviewed and reconciled 11. Continue with current medical management 12. Treatment plan discussed with patient and RN. Patient verbalized understanding. Plan discussed with: Patient, Other (RN) My Orders Orders - TATIANA VELASQUEZ DNP Procedure Category Date Status Time Aspirin Tablet PHA 09/20/24 In Process 10:00 Clonidine Hcl Tablet PHA 09/20/24 In Process (Catapres Tablet) 00:15 Atorvastatin (Lipitor) PHA 09/20/24 In Process 22:00 Carvedilol Tablet PHA 09/20/24 In Process (Coreg Tablet) 10:00 Losartan Tablet PHA 09/20/24 In Process (Cozaar Tablet) 10:00 Levothyroxine Tablet PHA 09/20/24 In Process (Synthroid Tablet) 06:00 Thyroid Stimulating LAB 09/20/24 In Process Hormone 00:06 Hydralazine Injection PHA 09/20/24 In Process (Apresoline Inject 00:15 Duloxetine Hcl PHA 09/20/24 In Process Capsule (Cymbalta 10:00 Allergies FARRUKH 09/20/24 In Process 00:06 Code Status CODE 09/20/24 Transmitted 00:06 Sodium Chloride Lock PHA 09/20/24 In Process (Saline Lock Ns) 06:00 Oxygen Per Hour RT 09/20/24 Transmitted 00:06 Hydrocodone-Acet PHA 09/20/24 In Process 5/325mg Tab (Alden 00:15 Ondansetron Hcl PHA 09/20/24 In Process (Zofran) 00:15 Docusate Sodium PHA 09/20/24 In Process Capsule (Colace 00:15 Complete Blood Count LAB 09/21/24 Verified 04:00 Comprehensive LAB 09/21/24 Verified Metabolic Panel 04:00 Cardiac DIET 09/20/24 Transmitted Diet-2gna,Lofat,Lochol Breakfast Condition: Serious FARRUKH 09/20/24 In Process 00:06 Acetaminophen Tablet PHA 09/20/24 In Process (Tylenol Tablet) 00:15 Bedrest With Bathroom FARRUKH 09/20/24 In Process Privileg 00:06 Morphine Sulfate PHA 09/20/24 In Process Injection 00:15 Sequential FARRUKH 09/20/24 In Process Compression Device Potassium Er Tablet PHA 09/20/24 In Process (Klor-Con Tablet) 00:45 Furosemide Injection [facility] 09/20/24 In Process (Lasix Injection) 00:45 Problem List: (1) Postoperative complication (2) Hypercalcemia (3) Hypokalemia (4) Fever, unspecified (5) Hypertensive urgency Date of Service: Sep 20, 2024 Billing Provider: TATIANA VELASQUEZ DNP Common Visit Codes: [id number] INP/OBS CARE (HIGH) TATIANA VELASQUEZ DNP Sep 20, 2024 00:48
[2024-09-20] MEDS: POTASSIUM CHL 20 Meq TABLET PO ONE (00:52)
[2024-09-20] MEDS: FUROSEMIDE 20 MG/2 ML VIAL IV ONE (00:52)
[2024-09-20] MEDS ORDERED: MORPHINE SULFATE INJ 2 MG/ml SYRG IV PRN (01:00)
[2024-09-20] MEDS ORDERED: NITROGLYCERIN 0.4 MG SL TAB SL PRN (01:00)
[2024-09-20] MEDS: LEVOTHYROXINE SODIUM 100 MCG TAB PO SCH (05:28)
[2024-09-20] MEDS: SODIUM CHLOR 0.9% PF (SALINE LOCK) 10ML VIAL/SYR IV SCH (05:29)
[2024-09-20] MEDS: cefTRIAXone 1GM/50ML D5W 50 ML IV ONE (06:30)
[2024-09-20] MEDS: ACETAMINOPHEN 325 MG TAB PO PRN (06:39)
[2024-09-20 07:27] LABS: Hematocrit 34.5 % (36.0-46.0); Hemoglobin 11.5 g/dL (12.2-16.2); Mean Corpuscular Hemoglobin 30.1 pg (28.0-32.0); Mean Corpuscular Volume 90.0 fL (80.0-100.0); Nucleated Red Blood Cells % 0.2 %
[2024-09-20 07:42] LABS: Alanine Aminotransferase 29 U/L (7-40); Albumin 4.3 g/dL (3.2-4.8); Anion Gap 9 (5-15); BUN/Creatinine Ratio 16.4 (10.0-20.0); Bilirubin, Total 0.4 mg/dL (0.2-1.0); Blood Urea Nitrogen 12 mg/dL (9-23); Carbon Dioxide 28 mmol/L (20-31); Chloride 103 mmol/L (98-107); Glucose 93 mg/dL (74-106); Potassium 3.6 mmol/L (3.5-5.1); Sodium 140 mmol/L (136-145); Total Protein 7.0 g/dL (5.7-8.2)
[2024-09-20 07:43] LABS: Alkaline Phosphatase 145 U/L (46-116); Calcium 11.4 mg/dL (8.7-10.4)
[2024-09-20] MEDS: FAMOTIDINE (10MG/ML) 2ML VL IV SCH (09:05)
[2024-09-20] MEDS: LOSARTAN POTASSIUM 25 MG TAB PO SCH (09:07)
--- NOTE | 2024-09-20 10:32 | DVHPN2 ---
Reviewed: Care Plan, H&P, Labs, Medications, Previous Orders, Radiology Changes from previous H/P or p: No Changes General: Per HPI Eyes: No Pain, No Vision change, No Conjunctivae inflammation, No Eyelid inflammation, No Other, No Redness ENT: No Ear pain, No Ear discharge, No Nose pain, No Nose discharge, No Nose congestion, No Mouth pain, No Mouth swelling, No Throat pain, No Throat swelling, No Other Cardiovascular: No Chest Pain, No Palpitations, No Orthopnea, No Paroxysmal Noc. Dyspnea, No Edema, No Lt Headedness, No Other Respiratory: No Cough, No Dry, No Shortness of breath, No SOB with excertion, No Wheezing, No Hemoptysis, No Pleuritic Pain, No Sputum, No Other Gastrointestinal: No Nausea, No Vomiting, No Abdominal Pain, No Diarrhea, No Constipation, No Melena, No Hematochezia, No Other Genitourinary: No Dysuria, No Frequency, No Incontinence, No Hematuria, No Retention, No Other Musculoskeletal: other Skin: Other Objective Vitals Vital Signs Date Time Temp Pulse Resp B/P (MAP) Pulse Ox O2 Delivery O2 Flow Rate FiO2 09/20/24 09:07 116/58 09/20/24 08:46 98.1 80 19 94 98.1 09/20/24 08:00 Room Air* 0 21 Intake/Output Intake and Output 09/20/24 07:00 Intake Total 300 ml Balance 300 ml Intake Oral 300 ml # Voids 4 Medications Current Medications Medications Dose Ordered Sig/Brea Route Start Time Stop Time Status Last Admin Dose Admin Aspirin 81 mg DAILY PO 09/20/24 10:00 09/20/24 09:08 81 MG Clonidine HCl 0.1 mg Q4HP PRN PO 09/20/24 00:15 Atorvastatin Calcium 20 mg HS PO 09/20/24 22:00 Carvedilol 12.5 mg Q12HR PO 09/20/24 10:00 Losartan Potassium 75 mg DAILY PO 09/20/24 10:00 09/20/24 09:07 75 MG Levothyroxine Sodium 100 mcg QAM@0600 PO 09/20/24 06:00 09/20/24 05:28 100 MCG Hydralazine HCl 10 mg Q6HP PRN IV 09/20/24 00:15 09/20/24 05:27 10 MG Duloxetine HCl 60 mg DAILY PO 09/20/24 10:00 09/20/24 09:07 60 MG Sodium Chloride 10 ml Q8HR IV 09/20/24 06:00 09/20/24 05:29 10 ML Acetaminophen/ Hydrocodone Bitart 1 tab Q4HP PRN PO 09/20/24 00:15 Ondansetron HCl 4 mg Q4HP PRN IV 09/20/24 00:15 Docusate Sodium 100 mg BIDPRN PRN PO 09/20/24 00:15 Acetaminophen 650 mg Q6HP PRN PO 09/20/24 00:15 09/20/24 06:39 650 MG Morphine Sulfate 2 mg Q4HPRN PRN IV 09/20/24 00:15 Nitroglycerin 0.4 mg Q5MINP PRN SL 09/20/24 01:00 Morphine Sulfate 2 mg Q30M PRN IV 09/20/24 01:00 Ceftriaxone Sodium 50 ml @ 100 mls/hr DAILY@09 IV 09/21/24 09:00 Famotidine 20 mg Q12HR IV 09/20/24 10:00 09/20/24 09:05 20 MG Laboratory Results Laboratory Tests 09/20/24 05:41 Chemistry Test 09/19/24 17:52 09/20/24 05:41 Albumin 4.3 g/dL (3.2-4.8) 4.3 g/dL (3.2-4.8) Calcium Level 11.7 mg/dL (8.7-10.4) H 11.4 mg/dL (8.7-10.4) H Total Protein 7.3 g/dL (5.7-8.2) 7.0 g/dL (5.7-8.2) LFT Test 09/19/24 17:52 09/20/24 05:41 Alanine Aminotransferase (ALT) 33 U/L (7-40) 29 U/L (7-40) Alkaline Phosphatase 164 U/L (46-116) H 145 U/L (46-116) H Aspartate Amino Transferase (AST) 43 U/L (13-40) H 32 U/L (13-40) Total Bilirubin 0.2 mg/dL (0.2-1.0) 0.4 mg/dL (0.2-1.0) HgA1c, TSH Test 09/19/24 17:52 Thyroid Stimulating Hormone (TSH) 1.97 uIU/mL (0.55-4.78) Assessment/Plan Assessment/Plan The patient is a 69-year-old female with past medical history of thyroid disease, hypertension, and depression who presented to [facility] ED for evaluation of right knee pain status post total knee replacement. Patient reports she has been experiencing fever, right knee edema, redness, and green drainage from the surgical site. Patient was seen and evaluated in the ED, laboratory data shows WBC 7.6, platelets 399, sodium 140, potassium 3.2, BUN 13, creatinine 0.88, GFR 72, glucose 94, calcium 11.7, AST 43, ALT 33, blood pressure 189/99 trending down to 168/73, heart rate 70, temperature 97.8 F, O2 saturation 98% on room air. Right knee CT revealing right total knee arthroplasty appears intact without evidence of loosening, small to moderate joint effusion with minimal soft tissue edema no evidence of an acute fracture, dislocation, blastic, lytic lesions. Patient was given Dilaudid 0.5 mg IV x1, please see medication orders section in the computer. On my assessment, patient denied chest pain, no headache, no dizziness, no diaphoresis, no shortness of breath, no nausea, no vomiting, no fever, no chills. Patient was admitted for further evaluation and medical management. Postoperative complication Hypercalcemia Hypokalemia Fever, unspecified Hypertensive urgency right leg/knee pain 09/20/2024: Continue with IV antibiotics. We will consult her orthopedic surgeon who operated on her, Dr. Cheung We will consult PT to evaluate her mobility Adding vanco per pharmacy Plan discussed with: Patient Date of Service: Sep 20, 2024 Billing Provider: BOBBY GOEL DO Common Visit Codes: [id number] INP/OBS CARE(HIGH) BOBBY GOEL DO Sep 20, 2024 10:32
[2024-09-20] MEDS ORDERED: VANCOMYCIN PER PHARMACY 0 MG IV SCH (13:00)
[2024-09-20] MEDS: VANCOMYCIN 1GM/200ML PM 250 ML IV SCH (13:29)
[2024-09-20] MEDS: CARVEDILOL 12.5 MG TAB PO SCH (13:32)
[2024-09-20] MEDS: CYCLOBENZAPRINE HCL 10 MG TAB PO PRN (18:06)
[2024-09-20] MEDS: ATORVASTATIN 20 MG TAB PO SCH (21:19)
[2024-09-21] VITALS (9 sets, daily range): BP systolic 98–168; BP diastolic 61–86; PULSE 56–89; RESP 16–20; TEMP 97.5–98.1; O2SAT 93–97
[2024-09-21] MEDS: cefTRIAXone 1GM/50ML D5W 50 ML IV SCH (08:40)
[2024-09-21] MEDS: LOSARTAN POTASSIUM 50 MG TAB PO SCH (10:00)
[2024-09-21 11:54] LABS: Hematocrit 36.2 % (36.0-46.0); Hemoglobin 11.7 g/dL (12.2-16.2); Mean Corpuscular Hemoglobin 29.4 pg (28.0-32.0); Mean Corpuscular Volume 90.8 fL (80.0-100.0); Nucleated Red Blood Cells % 0.0 %
[2024-09-21 12:15] LABS: Alanine Aminotransferase 23 U/L (7-40); Albumin 4.1 g/dL (3.2-4.8); Anion Gap 7 (5-15); BUN/Creatinine Ratio 13.5 (10.0-20.0); Blood Urea Nitrogen 10 mg/dL (9-23); Carbon Dioxide 29 mmol/L (20-31); Chloride 104 mmol/L (98-107); Glucose 103 mg/dL (74-106); Potassium 4.2 mmol/L (3.5-5.1); Sodium 140 mmol/L (136-145); Total Protein 7.0 g/dL (5.7-8.2)
[2024-09-21 12:16] LABS: Bilirubin, Total 0.3 mg/dL (0.2-1.0)
[2024-09-21 12:19] LABS: Alkaline Phosphatase 131 U/L (46-116); Calcium 11.7 mg/dL (8.7-10.4)
--- NOTE | 2024-09-21 12:47 | DVHPN2 ---
Progress Note - Dictate Date Seen: Sep 21, 2024 Medical Necessity Reason Pt with a Central, PICC or Fol: No Subjective Patient reports feeling much better. She was admitted late Saturday night for possible right knee infection. Patient underwent right total knee August 25 and reports that she did quite a bit of walking on the 18 of September in the knee became red and swollen so she came to the emergency room where she was admitted by the PA and nurse practitioner on-call. vital signs Vital Sign Date Time Temp Pulse Resp B/P (MAP) Pulse Ox O2 Delivery O2 Flow Rate FiO2 09/21/24 09:44 87 124/70 09/21/24 09:00 98.1 16 95 98.1 09/21/24 08:15 Room Air* 0 21 Total Intake and Output 09/20/24 09/20/24 09/21/24 15:00 23:00 07:00 Intake Total 300 ml 1210 ml 750 ml Balance 300 ml 1210 ml 750 ml medications Current Medications Medications Dose Ordered Sig/Brea Route Start Time Stop Time Status Last Admin Dose Admin Aspirin 81 mg DAILY PO 09/20/24 10:00 09/21/24 09:43 81 MG Clonidine HCl 0.1 mg Q4HP PRN PO 09/20/24 00:15 09/20/24 23:23 0.1 MG Atorvastatin Calcium 20 mg HS PO 09/20/24 22:00 09/20/24 21:19 20 MG Carvedilol 12.5 mg Q12HR PO 09/20/24 10:00 09/21/24 09:44 12.5 MG Levothyroxine Sodium 100 mcg QAM@0600 PO 09/20/24 06:00 09/21/24 06:03 100 MCG Hydralazine HCl 10 mg Q6HP PRN IV 09/20/24 00:15 09/21/24 06:03 10 MG Duloxetine HCl 60 mg DAILY PO 09/20/24 10:00 09/20/24 09:07 60 MG Sodium Chloride 10 ml Q8HR IV 09/20/24 06:00 09/21/24 09:45 10 ML Acetaminophen/ Hydrocodone Bitart 1 tab Q4HP PRN PO 09/20/24 00:15 Ondansetron HCl 4 mg Q4HP PRN IV 09/20/24 00:15 Docusate Sodium 100 mg BIDPRN PRN PO 09/20/24 00:15 Acetaminophen 650 mg Q6HP PRN PO 09/20/24 00:15 09/20/24 17:48 650 MG Morphine Sulfate 2 mg Q4HPRN PRN IV 09/20/24 00:15 Nitroglycerin 0.4 mg Q5MINP PRN SL 09/20/24 01:00 Morphine Sulfate 2 mg Q30M PRN IV 09/20/24 01:00 Ceftriaxone Sodium 50 ml @ 100 mls/hr DAILY@09 IV 09/21/24 09:00 09/21/24 08:40 100 MLS/HR Famotidine 20 mg Q12HR IV 09/20/24 10:00 09/21/24 09:43 20 MG Vancomycin HCl 0 ml @ 0 mls/hr UD IV 09/20/24 13:00 Cyclobenzaprine HCl 10 mg BID PRN PO 09/20/24 18:00 09/21/24 09:50 10 MG Losartan Potassium 100 mg DAILY PO 09/21/24 10:00 objective Well-developed well-nourished female in no acute distress Alert and oriented x4 Examination of the right knee reveals no erythema, no edema, no effusion Wound is well healed She is nontender She has minimal to no pain with active range of motion Active range of motion is from 5-110 degrees No calf tenderness or edema Distally neurovascularly intact CT scan revealed small effusion no evidence of lytic lesions or interface changes laboratory and microbiology Laboratory Tests 09/21/24 11:42 Test 09/21/24 11:42 Range/Units Serum Glucose 103 74-106 mg/dL Assessment/Plan Right knee pain s/p total knee arthroplasty Plan: At this time, there are no signs of infection. Her white count was normal. She has remained afebrile. Her pain has resolved. IV antibiotics per hospitalist and Infectious Disease. Follow up Dr. Gleason in 1-2 weeks. Plan discussed with: Patient, Spouse YOLIE GLEASON MD Sep 21, 2024 12:47
--- NOTE | 2024-09-21 14:34 | DVHPNRES ---
Progress Note Date Seen: Sep 21, 2024 Resident Creating Document: JOSÉ ANTONIO VUONG RESIDENT Medical Necessity Reason Pt with a Central, PICC or Fol: No Subjective Review of Systems 69-year-old female with past medical history of hypothyroidism, hypertension and depression presented to the ED for evaluation of right knee pain status post total knee replacement. Patient reports she had fever, right knee edema, redness swelling and green drainage from the surgical site. She reports the pain was 10/10 in intensity For which she took Tylenol and some antibiotics given by her friend. Patient denies chest pain, headache, dizziness, diaphoresis, shortness of breath, nausea, vomiting, fever or chills. PMH: Depression, hypothyroidism, hypertension PSH: right total knee replacement surgery on August 25, 2024. family history: Reviewed noncontributory to the management of this case Social history: The patient lives at home, denies smoking, alcohol or illicit drug abuse Home medication: Coreg 12.5 mg ROS: Patient was seen and examined by me in the bedside. Patient reports feeling much better and that there is no pain anymore. Rest of the ROS is negative Objective vital signs Vital Sign Date Time Temp Pulse Resp B/P (MAP) Pulse Ox O2 Delivery O2 Flow Rate FiO2 09/21/24 13:00 97.7 76 16 116/72 (87) 97 97.7 09/21/24 08:15 Room Air* 0 21 Total Intake and Output 09/20/24 09/20/24 09/21/24 15:00 23:00 07:00 Intake Total 300 ml 1210 ml 750 ml Balance 300 ml 1210 ml 750 ml medications Current Medications Medications Dose Ordered Sig/Brea Route Start Time Stop Time Status Last Admin Dose Admin Aspirin 81 mg DAILY PO 09/20/24 10:00 09/21/24 09:43 81 MG Clonidine HCl 0.1 mg Q4HP PRN PO 09/20/24 00:15 09/20/24 23:23 0.1 MG Atorvastatin Calcium 20 mg HS PO 09/20/24 22:00 09/20/24 21:19 20 MG Carvedilol 12.5 mg Q12HR PO 09/20/24 10:00 09/21/24 09:44 12.5 MG Levothyroxine Sodium 100 mcg QAM@0600 PO 09/20/24 06:00 09/21/24 06:03 100 MCG Hydralazine HCl 10 mg Q6HP PRN IV 09/20/24 00:15 09/21/24 06:03 10 MG Duloxetine HCl 60 mg DAILY PO 09/20/24 10:00 09/20/24 09:07 60 MG Sodium Chloride 10 ml Q8HR IV 09/20/24 06:00 09/21/24 09:45 10 ML Acetaminophen/ Hydrocodone Bitart 1 tab Q4HP PRN PO 09/20/24 00:15 Ondansetron HCl 4 mg Q4HP PRN IV 09/20/24 00:15 Docusate Sodium 100 mg BIDPRN PRN PO 09/20/24 00:15 Acetaminophen 650 mg Q6HP PRN PO 09/20/24 00:15 09/20/24 17:48 650 MG Morphine Sulfate 2 mg Q4HPRN PRN IV 09/20/24 00:15 Nitroglycerin 0.4 mg Q5MINP PRN SL 09/20/24 01:00 Morphine Sulfate 2 mg Q30M PRN IV 09/20/24 01:00 Ceftriaxone Sodium 50 ml @ 100 mls/hr DAILY@09 IV 09/21/24 09:00 09/21/24 08:40 100 MLS/HR Famotidine 20 mg Q12HR IV 09/20/24 10:00 09/21/24 09:43 20 MG Vancomycin HCl 0 ml @ 0 mls/hr UD IV 09/20/24 13:00 Cyclobenzaprine HCl 10 mg BID PRN PO 09/20/24 18:00 09/21/24 09:50 10 MG Losartan Potassium 100 mg DAILY PO 09/21/24 10:00 Vancomycin HCl 200 ml @ 200 mls/hr Q12H IV 09/21/24 15:00 Examination Pt is lying on bed General Appearance: Alert, Oriented X3, Cooperative, Not in acute distress HEENT: Atraumatic, Mucous membranes moist/pink Respiratory: Clear to auscultation, Normal air movement, No added sounds Cardiovascular: Regular rate, Normal S1, Normal S2, No murmurs Abdominal: Active bowel sounds, Soft, no distention, no tenderness Extremities: No edema, Normal pulses, No tenderness/swelling, right leg surgical scar intact, well approximated, no erythema, no pus Skin: No Significant rash, except past surgical scar Neuro: Normal speech, sensorimotor deficits none Psych/Mental Status: Mental status NL, Mood NL Nurse was there as dry cans operator during examination laboratory and microbiology Laboratory Tests 09/21/24 11:42 Test 09/21/24 11:42 Range/Units Serum Glucose 103 74-106 mg/dL Labs and/or images reviewed: Labs reviewed by me, Image(s) reviewed by me Problem List/Assessment/Plan Problem List/Assessment/Plan #Postoperative complication S/p right knee replacement - CT showed :There is no evidence of an acute fracture, dislocation, blastic, or lytic lesions. Right total knee arthroplasty appears intact without evidence of loosening. Associated beam hardening artifact limits evaluation. small to moderate joint effusion with minimal soft tissue edema. Possible peripheral enhancement along the effusion, but evaluation is limitedDr. -Dr Cheung informed 4 or so consult. -Empiric antibiotic vancomycin started #Hypertensive urgency -Home medicine continued -Continue monitoring B -Hydralazine, clonidine p.r.n. ordered #Hypothyroidism -Continue levothyroxine home medication #Hypercalcemia, asymptomatic -Monitor labs -ordered PTH GI prophylaxis: not indicated DVT prophylaxis: Lovenox Diet: low-salt diet Goals of care discussed with the patient for more than 27 minutes: Full code status Case discussed with Dr. Hicks, patient and nurse. Plan discussed with: Patient, Other (RN) Date of Service: Sep 21, 2024 Billing Provider: FELIX HICKS MD Common Visit Codes: [id number] INP/OBS CARE(HIGH) JOSÉ ANTONIO VUONG RESIDENT Sep 21, 2024 14:34 FELIX HICKS MD Sep 21, 2024 19:23
[2024-09-21] MEDS: ENOXAPARIN SOD 40 MG/0.4 ML SYRINGE SC ONE (15:11)
[2024-09-22] VITALS (8 sets, daily range): BP systolic 121–170; BP diastolic 62–79; PULSE 72–85; RESP 17–20; TEMP 97.7–98.8; O2SAT 94–97
[2024-09-22] MEDS: MORPHINE SULFATE INJ 2 MG/ml SYRG IV PRN (06:13)
[2024-09-22 06:15] LABS: Hematocrit 32.6 % (36.0-46.0); Hemoglobin 10.9 g/dL (12.2-16.2); Mean Corpuscular Hemoglobin 30.2 pg (28.0-32.0); Mean Corpuscular Volume 90.4 fL (80.0-100.0); Nucleated Red Blood Cells % 0.0 %
[2024-09-22] MEDS: ENOXAPARIN SOD 40 MG/0.4 ML SYRINGE SC SCH (09:44)
--- NOTE | 2024-09-22 14:31 | DVHPNRES ---
Progress Note Date Seen: Sep 22, 2024 Resident Creating Document: JOSÉ ANTONIO VUONG RESIDENT Medical Necessity Reason Pt with a Central, PICC or Fol: No Subjective Review of Systems 69-year-old female with past medical history of hypothyroidism, hypertension and depression presented to the ED for evaluation of right knee pain status post total knee replacement. Patient reports she had fever, right knee edema, redness swelling and green drainage from the surgical site. She reports the pain was 10/10 in intensity for which she took Tylenol and some antibiotics given by her friend. Patient denies chest pain, headache, dizziness, diaphoresis, shortness of breath, nausea, vomiting, fever or chills. PMH: Depression, hypothyroidism, hypertension PSH: right total knee replacement surgery on August 25, 2024. Family history: Reviewed noncontributory to the management of this case Social history: The patient lives at home, denies smoking, alcohol or illicit drug abuse Home medication: Coreg 12.5 mg. patient reports that she has been asked to take 2 tablets but has been taking only 1 since February as she felt dizzy. ROS: Patient was seen and examined by me in the bedside. Overnight events reviewed. Patient reports feeling much better and that there is no pain in her knee anymore. Rest of the ROS is negative Patient reports: Feels better Objective vital signs Vital Sign Date Time Temp Pulse Resp B/P (MAP) Pulse Ox O2 Delivery O2 Flow Rate FiO2 09/22/24 13:00 98.3 79 17 156/63 (94) 96 98.3 09/22/24 08:00 Room Air* 0 21 Total Intake and Output 09/21/24 09/21/24 09/22/24 15:00 23:00 07:00 Intake Total 50 ml 1000 ml 1050 ml Balance 50 ml 1000 ml 1050 ml medications Current Medications Medications Dose Ordered Sig/Brea Route Start Time Stop Time Status Last Admin Dose Admin Aspirin 81 mg DAILY PO 09/20/24 10:00 09/22/24 09:46 81 MG Clonidine HCl 0.1 mg Q4HP PRN PO 09/20/24 00:15 09/20/24 23:23 0.1 MG Atorvastatin Calcium 20 mg HS PO 09/20/24 22:00 09/21/24 21:38 20 MG Carvedilol 12.5 mg Q12HR PO 09/20/24 10:00 09/22/24 09:48 12.5 MG Levothyroxine Sodium 100 mcg QAM@0600 PO 09/20/24 06:00 09/22/24 06:12 100 MCG Hydralazine HCl 10 mg Q6HP PRN IV 09/20/24 00:15 09/22/24 04:55 10 MG Duloxetine HCl 60 mg DAILY PO 09/20/24 10:00 09/20/24 09:07 60 MG Sodium Chloride 10 ml Q8HR IV 09/20/24 06:00 09/22/24 06:13 10 ML Acetaminophen/ Hydrocodone Bitart 1 tab Q4HP PRN PO 09/20/24 00:15 Ondansetron HCl 4 mg Q4HP PRN IV 09/20/24 00:15 Docusate Sodium 100 mg BIDPRN PRN PO 09/20/24 00:15 Acetaminophen 650 mg Q6HP PRN PO 09/20/24 00:15 09/21/24 18:08 650 MG Morphine Sulfate 2 mg Q4HPRN PRN IV 09/20/24 00:15 09/22/24 06:13 2 MG Nitroglycerin 0.4 mg Q5MINP PRN SL 09/20/24 01:00 Morphine Sulfate 2 mg Q30M PRN IV 09/20/24 01:00 Famotidine 20 mg Q12HR IV 09/20/24 10:00 09/22/24 09:50 20 MG Cyclobenzaprine HCl 10 mg BID PRN PO 09/20/24 18:00 09/21/24 21:38 10 MG Losartan Potassium 100 mg DAILY PO 09/21/24 10:00 09/22/24 09:49 100 MG Enoxaparin Sodium 40 mg DAILY SC 09/22/24 10:00 09/22/24 09:44 40 MG Nifedipine 60 mg DAILY PO 09/23/24 10:00 Doxycycline Monohydrate 100 mg Q12HR PO 09/22/24 22:00 UNV Examination Pt is lying on bed General Appearance: Alert, Oriented X3, Cooperative, Not in acute distress HEENT: Atraumatic, Mucous membranes moist/pink Respiratory: Clear to auscultation, Normal air movement, No added sounds Cardiovascular: Regular rate, Normal S1, Normal S2, No murmurs Abdominal: Active bowel sounds, Soft, no distention, no tenderness Extremities: No edema, Normal pulses, No tenderness/swelling, right leg surgical scar intact, well approximated, no erythema, no pus Skin: No Significant rash, except past surgical scar Neuro: Normal speech, sensorimotor deficits none Psych/Mental Status: Mental status NL, Mood NL Nurse was there as curtain stitcher during examination laboratory and microbiology Laboratory Tests 09/22/24 13:36 09/22/24 05:14 09/21/24 11:42 Test 09/21/24 11:42 Range/Units Serum Glucose 103 74-106 mg/dL Problem List/Assessment/Plan Problem List/Assessment/Plan #Postoperative complication S/p right knee replacement - CT showed :There is no evidence of an acute fracture, dislocation, blastic, or lytic lesions. Right total knee arthroplasty appears intact without evidence of loosening. Associated beam hardening artifact limits evaluation. small to moderate joint effusion with minimal soft tissue edema. Possible peripheral enhancement along the effusion, but evaluation is limitedDr. -Dr Cheung consulted And asked to follow up in 1-2 weeks -Empiric antibiotic vancomycin discontinued, ordered doxycycline p.o. #Hypertensive urgency -Home medicine continued -Continue monitoring B -Hydralazine, clonidine p.r.n. ordered -Nifedipine ordered #Hypothyroidism -Continue levothyroxine home medication #Hypercalcemia, asymptomatic -Monitor labs -ordered PTH GI prophylaxis: not indicated DVT prophylaxis: Lovenox Diet: low-salt diet Goals of care discussed with the patient for more than 27 minutes: Full code status Case discussed with Dr. Tse, patient and nurse. Plan discussed with: Patient, Other (RN) Date of Service: Sep 22, 2024 Billing Provider: FELIX TSE MD Common Visit Codes: [id number] INP/OBS CARE(HIGH) JOSÉ ANTONIO VUONG RESIDENT Sep 22, 2024 14:30 RENAE KANG RESIDENT Sep 22, 2024 17:00 FELIX TSE MD Sep 22, 2024 23:06
[2024-09-22] MEDS: DOXYCYCLINE 100 MG TAB/CAP PO ONE (16:14)
[2024-09-22] MEDS: DOXYCYCLINE 100 MG TAB/CAP PO SCH (21:27)
[2024-09-23 01:00] VITALS: BP 177/85; PULSE 88; RESP 20; TEMP 98.3; O2SAT 94
[2024-09-23 05:00] VITALS: BP 170/76; PULSE 86; RESP 19; TEMP 98.3; O2SAT 94
[2024-09-23 06:25] LABS: Hematocrit 36.0 % (36.0-46.0); Hemoglobin 11.7 g/dL (12.2-16.2); Mean Corpuscular Hemoglobin 29.5 pg (28.0-32.0); Mean Corpuscular Volume 90.5 fL (80.0-100.0); Nucleated Red Blood Cells % 0.1 %
[2024-09-23 06:36] LABS: Alanine Aminotransferase 17 U/L (7-40); Anion Gap 8 (5-15); BUN/Creatinine Ratio 16.7 (10.0-20.0); Blood Urea Nitrogen 13 mg/dL (9-23); Carbon Dioxide 29 mmol/L (20-31); Chloride 105 mmol/L (98-107); Glucose 100 mg/dL (74-106); Potassium 4.3 mmol/L (3.5-5.1); Sodium 142 mmol/L (136-145); Total Protein 6.8 g/dL (5.7-8.2)
[2024-09-23 06:37] LABS: Albumin 4.1 g/dL (3.2-4.8); Bilirubin, Total 0.3 mg/dL (0.2-1.0)
[2024-09-23 06:40] LABS: Alkaline Phosphatase 129 U/L (46-116); Calcium 10.7 mg/dL (8.7-10.4)
[2024-09-23 08:34] VITALS: BP 122/58; PULSE 63; RESP 18; TEMP 97.8; O2SAT 96
[2024-09-23] MEDS ORDERED: NIFE1TAB31 PO (11:04)
[2024-09-23] MEDS ORDERED: CYCL-611 PO (11:04)
[2024-09-23] MEDS ORDERED: DOX100T PO (11:04)
[2024-09-23] MEDS ORDERED: ASPI-325 PO (11:04)
[2024-09-23] MEDS ORDERED: ATOR20TA50 PO (11:04)
[2024-09-23 13:00] VITALS: BP 140/80; PULSE 72; RESP 17; TEMP 97.1; O2SAT 98
--- NOTE | 2024-09-23 15:43 | DVHDSRES ---
Discharge Summary Date of Admission Resident Creating Document: JOSÉ ANTONIO VUONG RESIDENT Sep 20, 2024 at 00:46 Date of Discharge: Sep 23, 2024 Admitting Diagnosis #Postoperative complication S/p right knee replacement Labs/Diagnostic Data: Laboratory Results Test 09/23/24 05:35 09/22/24 13:36 09/22/24 05:14 09/21/24 11:42 White Blood Count 6.3 10^3/uL (4.4-10.8) Red Blood Count 3.98 10^6/uL (4.0-5.20) Hemoglobin 11.7 g/dL (12.2-16.2) Hematocrit 36.0 % (36.0-46.0) Mean Corpuscular Volume 90.5 fL (80.0-100.0) Mean Corpuscular Hemoglobin 29.5 pg (28.0-32.0) Mean Corpuscular Hemoglobin Concent 32.5 g/dL (32.0-36.0) Red Cell Distribution Width 16.0 % (11.8-14.3) Platelet Count 321 10^3/uL (140-450) Mean Platelet Volume 8.1 fL (6.9-10.8) Neutrophils (%) (Auto) 69.0 % (37.0-80.0) Lymphocytes (%) (Auto) 18.0 % (10.0-50.0) Monocytes (%) (Auto) 10.5 % (0.0-12.0) Eosinophils (%) (Auto) 2.0 % (0.0-7.0) Basophils (%) (Auto) 0.5 % (0.0-2.0) Neutrophils # (Auto) 4.3 10 ^3/uL (1.6-8.6) Lymphocytes # (Auto) 1.1 10 ^3/uL (0.4-5.4) Monocytes # (Auto) 0.7 10 ^3/uL (0-1.3) Eosinophils # (Auto) 0.1 10 ^3/uL (0-0.8) Basophils # (Auto) 0 10 ^3/uL (0-0.2) Nucleated Red Blood Cells 0.1 % Sodium Level 142 mmol/L (136-145) Potassium Level 4.3 mmol/L (3.5-5.1) Chloride Level 105 mmol/L (98-107) Carbon Dioxide Level 29 mmol/L (20-31) Anion Gap 8 (5-15) Blood Urea Nitrogen 13 mg/dL (9-23) Creatinine 0.78 mg/dL (0.550-1.02) Glomerular Filtration Rate Calc 83 mL/min (>90) BUN/Creatinine Ratio 16.7 (10.0-20.0) Serum Glucose 100 mg/dL (74-106) Calcium Level 10.7 mg/dL (8.7-10.4) Total Bilirubin 0.3 mg/dL (0.2-1.0) Aspartate Amino Transferase (AST) 20 U/L (13-40) Alanine Aminotransferase (ALT) 17 U/L (7-40) Alkaline Phosphatase 129 U/L (46-116) Total Protein 6.8 g/dL (5.7-8.2) Albumin 4.1 g/dL (3.2-4.8) Vancomycin Level Trough 17.4 ug/mL (5-10) Parathyroid Hormone (Intact) 105.3 pg/mL (18.4-80.1) Lactic Acid Level 1.2 mmol/L (0.4-2.0) Random Vancomycin Level 9.7 ug/mL (5-10) Test 09/19/24 17:52 Thyroid Stimulating Hormone (TSH) 1.97 uIU/mL (0.55-4.78) Other Laboratory Tests 09/23/24 05:35 Brief Hx & Hospital Course: 69-year-old female with past medical history of hypothyroidism, hypertension and depression presented to the ED for evaluation of right knee pain status post total knee replacement. Patient reports she had fever, right knee edema, redness swelling and green drainage from the surgical site. She reports the pain was 10/10 in intensity for which she took Tylenol and some antibiotics given by her friend. Patient denies chest pain, headache, dizziness, diaphoresis, shortness of breath, nausea, vomiting, fever or chills. PMH: Depression, hypothyroidism, hypertension PSH: right total knee replacement surgery on August 25, 2024. Family history: Reviewed noncontributory to the management of this case Social history: The patient lives at home, denies smoking, alcohol or illicit drug abuse Home medication: Coreg 12.5 mg. patient reports that she has been asked to take 2 tablets but has been taking only 1 since February as she felt dizzy. Brief history of hospitalization: Patient came with postoperative complication S/p right knee replacement. CT showed :There is no evidence of an acute fracture, dislocation, blastic, or lytic lesions. Right total knee arthroplasty appears intact without evidence of loosening. Associated beam hardening artifact limits evaluation. Small to moderate joint effusion with minimal soft tissue edema. Possible peripheral enhancement along the effusion, but evaluation is limited. Dr Cheung consulted and asked to follow up in 1-2 weeks. patient was started on vancomycin which was discontinued and doxycycline was ordered. For her hypertensive urgency home medicine was continued as well. hydralazine, clonidine was ordered p.r.n.. Nifedipine was given which decreased her blood pressure. For hypothyroidism patient was asked to continue levothyroxine no medication. For hypercalcemia, asymptomatic labs were monitored. Patient is now hemodynamically stable to discharge. She has been counseled regarding taking a low-salt diet. Since she started on nifedipine for home medication she has been counseled that her BP might be slightly low and it will take at least 4 weeks for the medicines to start working. She has also been asked to follow up with her PCP within the week. She has also been counseled regarding low-salt diet. Patient communicated understanding. We are discharging patient with Aspirin, Lipitor 20 mg, cyclobenzaprine 10 mg, doxycycline 100 mg for 10 days, nifedipine 60 mg. Pt is lying on bed General Appearance: Alert, Oriented X3, Cooperative, Not in acute distress HEENT: Atraumatic, Mucous membranes moist/pink Respiratory: Clear to auscultation, Normal air movement, No added sounds Cardiovascular: Regular rate, Normal S1, Normal S2, No murmurs Abdominal: Active bowel sounds, Soft, no distention, no tenderness Extremities: No edema, Normal pulses, No tenderness/swelling, right leg surgical scar intact, well approximated, no erythema, no pus Skin: No Significant rash, except past surgical scar Neuro: Normal speech, sensorimotor deficits none Psych/Mental Status: Mental status NL, Mood NL Nurse was there as engagement engineer during examination Operations or Procedures EXAM: CT RT LOWER EXTREMITY W CON INDICATION: Possible septic joint postop EXAM DATE: 09/19/2024 08:12 PM COMPARISON: None TECHNIQUE: Multiple axial CT images of the right knee were obtained using bone algorithm. Axial and coronal reformatting was done. Bone and soft tissue windows were reviewed. Radiation Dose Information: CT Dose: CTDI volume is 8.09 mGy. Dose-length product is 288.17 mGy*cm Findings/Impression: There is no evidence of an acute fracture, dislocation, blastic, or lytic lesions. Right total knee arthroplasty appears intact without evidence of loosening. Associated beam hardening artifact limits evaluation. Small to moderate joint effusion with minimal soft tissue edema. Possible peripheral enhancement along the effusion, but evaluation is limited. Recommend contrast-enhanced MRI or nuclear medicine WBC scan for better evaluation of possible infectious etiology. Condition at Discharge: Stable Final Diagnosis/Problems List #Postoperative complication S/p right knee replacement #Hypertensive urgency #Hypothyroidism #Hypercalcemia, asymptomatic Discharge Disposition: Home Discharge Instruct/Medications Diet: Consistent carbohydrate, Cardiac 2g Na,low cholest Activity: No Restrictions, As Tolerated Follow Up/Referral: F/U with PCP within a week Medications: As per EMR Scheduled Aspirin (Aspirin Low Dose), 81 MG PO DAILY Atorvastatin Calcium (Atorvastatin Calcium), 20 MG PO HS Carvedilol (Carvedilol), 12.5 MG PO BID, (Reported) Cyclobenzaprine Hcl (Cyclobenzaprine Hcl), 10 MG PO BID, (Reported) Docusate Sodium (Colace), 100 MG PO PRN, (Reported) Doxycycline Monohydrate (Doxycycline Monohydrate), 100 MG PO Q12HR Hydrocodone-Acetaminophen (Hydrocodone/Acetaminophen 10-325 mg), 1 TAB PO PRN, (Reported) Levothyroxine Sodium (Synthroid Tablet), 88 MCG PO DAILY, (Reported) Losartan Potassium (Losartan Potassium), 100 MG PO DAILY, (Reported) Nifedipine (Nifedipine Er), 60 MG PO DAILY Pantoprazole Sodium Sesquihydr (Protonix), 40 MG PO DAILY, (Reported) Scheduled PRN Cyclobenzaprine HCl (Cyclobenzaprine Hydrochlo), 10 MG PO BID PRN Discharge Statement: "Patient was advised to return to the ER or call 911 if any headaches, dizziness, shortness of breath, chest pain, abdominal pain, bleeding, fevers, or worsening of medical condition. Patient was counseled about treatment plan, medications, possible side effects, patientverbalized understanding. All questions were answered to the best of my ability. This discharge took greater then 30 minutes in planning, reviewing documentation, counseling the patient, and discussing with other team members." ASSESSMENT ASSESSMENT Assessment #Postoperative complication s/p right knee replacement #Hypertensive urgency #Hypothyroidism #Hpercalcemia, asymptomatic Date of Service: Sep 23, 2024 Billing Provider: FELIX TSE MD Common Visit Codes: [id number] DISCH DAY >30min JOSÉ ANTONIO VUONG RESIDENT Sep 23, 2024 15:43 FELIX TSE MD Sep 24, 2024 08:11
== END 2024-09-23 13:45 | disposition home or self-care (01) | DRG 921 ==
LOC: ER 17:20 → OVERFLOW 09-20 00:46 → TELE-CENTR 09-20 01:56 → CENTRAL 09-21 17:28
PROVIDERS: ADMIT Internal Medicine; ATTEND Internal Medicine
DX: T81.89XA Other complications of procedures, not elsewhere classified, initial encounter (principal); E87.6 Hypokalemia; I16.0 Hypertensive urgency; E83.52 Hypercalcemia; Z96.651 Presence of right artificial knee joint; I10 Essential (primary) hypertension; E03.9 Hypothyroidism, unspecified; Y83.8 Other surgical procedures as the cause of abnormal reaction of the patient, or of later complication, without mention of misadventure at the time of the procedure; Z88.0 Allergy status to penicillin; Y92.89 Other specified places as the place of occurrence of the external cause; Z79.899 Other long term (current) drug therapy
CPT/HCPCS: 36415; 73701; 80053; 80202; 82310; 82565; 83605; 83970; 84443; 85025; 96365; 96375; G0378; J3490